=== PATIENT | female | born 1975 | race Caucasian/White ===

== ENCOUNTER 2020-01-03 21:54 | Emergency (ER) | payer OTHER ==
[~2020-01-03 21:54] MED LIST: Etomidate 2 MG/ML 20 ML SDV IVPUSH ONE; Midazolam 5 MG/ML 5 ML MDV ONE; Succinylcholine 200 MG/10 ML MDV ONE
[2020-01-03] MEDS ORDERED: propofoL 100 ML ONE (22:14)
[2020-01-03] MEDS ORDERED: Lactated Ringers 1,000 ML IV SCH (22:15)
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
[2020-01-03] MEDS ORDERED: propofoL 100 ML IV SCH (23:15)
--- NOTE | 2020-01-04 07:32 | CR ---
Left ankle: 2 views of the left ankle were obtained. Comparison: No previous ankle study is available. Plate and screws are identified affixing old healed fractures within the mid to distal tibia and fibula. Ankle mortise is symmetric. No acute fracture or other bony abnormality is appreciated. Impression: 1. Orthopedic hardware affixing healed fractures. 2. Nothing acute is identified. Diagnostic code #2 This report was dictated in MDT
--- NOTE | 2020-01-04 07:40 | CR ---
Left forearm: 2 views of the left forearm were obtained. Comparison: No prior left forearm exam. Slightly comminuted fractures within the mid one third diaphysis of the radius and ulna. Displacement is seen up to one shaft width. Diffuse soft tissue swelling is noted. No proximal or distal abnormality is appreciated. Impression: 1. Fractures within the mid one third shaft of the radius and ulna. Diagnostic code #3 This report was dictated in MDT
--- NOTE | 2020-01-04 07:41 | CR ---
Right forearm: 2 views of the right forearm were obtained. Comparison: No previous study. Comminuted distal right radial fracture is seen with articular extension. Linear radiopacity is seen overlying the wrist which is uncertain as to etiology. Mild degenerative change is noted within the CMC joint of the thumb. No proximal abnormality is appreciated. Impression: 1. Comminuted distal right radial fracture with articular extension. 2. Linear radiopacity overlying the right wrist, please correlate as to etiology. Diagnostic code #3 This report was dictated in MDT
--- NOTE | 2020-01-04 07:47 | CR ---
Chest: Portable supine view of the chest was obtained. Comparison: No previous study. Endotracheal tube is seen. Tip lies at the level of the clavicles. Nasogastric tube coiled within the stomach. Calcification is seen within the upper right abdomen either due to small calcified gallstone or granuloma within the liver. Lungs are clear with no acute parenchymal change. Heart size and mediastinum are normal. Mild scoliosis is present within the spine. Impression: 1. Endotracheal tube with tip at the level the clavicles. 2. Nasogastric tube coiled within the stomach. 3. Nothing acute is otherwise appreciated. Diagnostic code #2 This report was dictated in MDT
== END 2020-01-04 01:44 ==
LOC: JD.ED 21:54
DX: S52.501A Unspecified fracture of the lower end of right radius, initial encounter for closed fracture (principal); S52.602A Unspecified fracture of lower end of left ulna, initial encounter for closed fracture; S52.302A Unspecified fracture of shaft of left radius, initial encounter for closed fracture; S08.0XXA Avulsion of scalp, initial encounter; F12.90 Cannabis use, unspecified, uncomplicated; V89.2XXA Person injured in unspecified motor-vehicle accident, traffic, initial encounter
CPT/HCPCS: 31500; 36415; 36600; 71045; 73090; 73600; 80053; 80306; 81001; 81025; 82803; 85007; 85027; 85610; 85730; 99285; J0330; J2250; J2704; J3490; J7120